=== PATIENT | male | born 1985 | race Two or more races ===

== ENCOUNTER 2018-04-07 13:03 | Emergency (ER) | payer SELFPAY ==
[2018-04-07] MEDS: FAMOTIDINE 20 MG TABLET. PO (13:39)
[2018-04-07] MEDS: predniSONE 20 MG TABLET PO (13:39)
== END 2018-04-07 13:40 | disposition home or self-care (01) ==
LOC: ER 13:03
DX: L25.9 Unspecified contact dermatitis, unspecified cause (principal)
CPT/HCPCS: 99283